=== PATIENT | female | born 1940 ===

== ENCOUNTER 2022-04-10 18:02 | Emergency (ER) | payer OTHER ==
[~2022-04-10] VITALS: Ht 165.1 cm; Wt 53.1 kg
[2022-04-10] MEDS ORDERED: GLUMETZA500 MG PO (18:17)
[2022-04-10] MEDS ORDERED: VASOTEC5 MG PO (18:19)
[2022-04-10] MEDS ORDERED: MELOXICAM15 MG PO (18:20)
[2022-04-10] MEDS ORDERED: ATORVASTATIN CA10 MG PO (18:20)
[2022-04-10] MEDS ORDERED: DAFLONEX-XL 11300 MG PO (18:21)
[2022-04-10] MEDS ORDERED: BIOTIN1 MG PO (18:21)
== END 2022-04-10 20:07 | disposition home or self-care (01) ==
LOC: ER 18:02
DX: R42 Dizziness and giddiness (principal); T50.905A Adverse effect of unspecified drugs, medicaments and biological substances, initial encounter; R10.13 Epigastric pain; E11.9 Type 2 diabetes mellitus without complications; Z79.899 Other long term (current) drug therapy; I10 Essential (primary) hypertension

== ENCOUNTER 2023-03-29 09:34 | Outpatient (CLI) | payer OTHER ==
[~2023-03-29 09:34] MED LIST: ATORVASTATIN CA10 MG PO; BIOTIN1 MG PO; DAFLONEX-XL 11300 MG PO; GLUMETZA500 MG PO; MELOXICAM15 MG PO; VASOTEC5 MG PO
== END 2023-03-29 09:35 | disposition home or self-care (01) ==
LOC: LAB 09:34
PROVIDERS: ATTEND Psychiatry & Neurology Neurology
DX: G30.8 Other Alzheimer's disease (principal); G61.1 Serum neuropathy

== ENCOUNTER 2023-04-07 09:33 | Outpatient (CLI) | payer OTHER | END 2023-04-07 09:46 | disposition home or self-care (01) | LOC: TOM 09:33 | PROVIDERS: ATTEND Urology | DX: N13.1 Hydronephrosis with ureteral stricture, not elsewhere classified (principal) | CPT/HCPCS: 74178; Q9965 ==

== ENCOUNTER 2023-05-29 07:08 | Emergency (ER) | payer OTHER ==
[~2023-05-29] VITALS: Ht 165.1 cm; Wt 47.6 kg
[2023-05-29] MEDS ORDERED: ZESTRIL10 M1 (07:19)
[2023-05-29] MEDS ORDERED: ZETIA10 MG (07:19)
[2023-05-29] MEDS ORDERED: JARDIANCE10 MG PO (07:19)
[2023-05-29] MEDS ORDERED: MILLIPRED5 MG (07:20)
[2023-05-29] MEDS ORDERED: INTESTINEX680 M1 PO (07:21)
[2023-05-29] MEDS ORDERED: DAFLONEX-XL 11300 MG PO (07:21)
[2023-05-29] MEDS ORDERED: HYDROCHLOROTH12.5 MG PO (07:22)
[2023-05-29] MEDS ORDERED: ARICEPT5 MG (07:22)
[2023-05-29 08:49] LABS: HEMATOCRIT 42.6 % (36.0-45.00); HEMOGLOBIN 14.3 g/dL (12.0-15.00); MEAN CELL VOLUME 93.7 fL (80.00-100.00); MEAN CORPUSCULAR HEMOGLOBIN 31.5 pg (27.00-32.0); MEAN CORPUSCULAR HGB CONC 33.6 g/dl (32.0-36.0); PLATELET COUNT 329 K/uL (150-450); RED BLOOD COUNT 4.54 M/uL (4.00-6.00); RED CELL DISTRIBUTION WIDTH 14.1 % (11.5-14.5)
== END 2023-05-29 10:52 | disposition home or self-care (01) ==
LOC: ER 07:08
DX: K59.00 Constipation, unspecified (principal); R30.0 Dysuria
CPT/HCPCS: 36415; 74019; 96372; 99283; J1885